=== PATIENT | female | born 1990 | race Caucasian/White ===

== ENCOUNTER 2023-06-14 11:21 | Emergency (ER) | payer OTHER ==
[~2023-06-14] VITALS: Ht 160 cm; Wt 93.0 kg
[~2023-06-14 11:21] MED LIST: CALC500C17 PO; PREN-385 PO
[2023-06-14 11:47] VITALS: BP 132/87; PULSE 73; RESP 20; TEMP 96.6; O2SAT 100
[2023-06-14] MEDS ORDERED: KETOROLAC 60 MG/2 ML VIAL IM ONE (16:35)
[2023-06-14] MEDS ORDERED: IBUP-2213 PO (17:00)
[2023-06-14] MEDS ORDERED: HYDR-5191 PO (17:00)
[2023-06-14] MEDS ORDERED: ONDA8TAB87 PO (17:00)
[2023-06-14 17:12] VITALS: BP 122/87; PULSE 73; RESP 20; TEMP 96.6; O2SAT 100
== END 2023-06-14 17:09 | disposition home or self-care (01) ==
LOC: MED 11:21
DX: R10.32 Left lower quadrant pain (principal); Z79.899 Other long term (current) drug therapy
CPT/HCPCS: 81002; 81025; 93005; 96372; 99283; J1885